=== PATIENT | male | born 1980 | race Caucasian/White ===

== ENCOUNTER 2023-05-07 14:41 | Emergency (ER) | payer SELFPAY ==
[~2023-05-07] VITALS: Ht 175.3 cm; Wt 77.0 kg
[2023-05-07 14:59] VITALS: BP 114/66; PULSE 59; RESP 16; TEMP 98; O2SAT 98
[2023-05-07] MEDS ORDERED: ASPIRIN 325MG EC TABLET PO ONE (15:00)
[2023-05-07 15:32] LABS: BASOPHILS % 1.1 % (0.0-2.0); EOSINOPHILS % 4.2 % (0.0-5.0); HEMATOCRIT. 41.2 % (42.0-52.0); HEMOGLOBIN. 13.7 g/dL (14.0-18.0); LYMPHOCYTES % 20.4 % (20.0-50.0); MEAN CORPUSCULAR HEMOGLOBIN 29.3 pg (28.0-32.0); MEAN CORPUSCULAR VOLUME 88.5 fL (80.0-94.0); MEAN PLATELET VOLUME 8.6 fl (7.4-10.4); MONOCYTES % 10.3 % (2.0-8.0); PLATELET 379 x1000/uL (130-400); RED BLOOD CELL COUNT 4.66 mill/uL (4.7-6.1); RED CELL DISTRIBUTION WIDTH 14.7 % (11.6-14.6)
[2023-05-07 15:43] LABS: CHLORIDE 110 mEq/L (98-107)
[2023-05-07 15:57] LABS: ETHANOL BLOOD < 10 mg/dL (-10)
== END 2023-05-07 16:56 | disposition home or self-care (01) ==
LOC: ER 14:41
DX: M79.602 Pain in left arm (principal); F15.10 Other stimulant abuse, uncomplicated; Z59.00 Homelessness unspecified; Z00.00 Encounter for general adult medical examination without abnormal findings
CPT/HCPCS: 36415; 71045; 80053; 80320; 83605; 83880; 84484; 85025; 93005; 99285; G0480